=== PATIENT | male | born 1970 | race African-American/Black ===

== ENCOUNTER 2016-05-22 11:13 | Emergency (ER) | payer MEDICAID ==
[2016-05-22 11:23] VITALS: BP 151/88
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
== END 2016-05-22 13:06 | disposition home or self-care (01) ==
LOC: ER 11:13
DX: G89.29 Other chronic pain (principal); M54.5 Low back pain; M51.37 Other intervertebral disc degeneration, lumbosacral region; K08.89 Other specified disorders of teeth and supporting structures; I10 Essential (primary) hypertension; F17.200 Nicotine dependence, unspecified, uncomplicated; Z88.3 Allergy status to other anti-infective agents; Z91.013 Allergy to seafood
CPT/HCPCS: 99283

== ENCOUNTER 2016-07-08 09:22 | Emergency (ER) | payer MEDICAID ==
[2016-07-08] MEDS ORDERED: PENICILLIN V POTASSIUM 500 MG TABLET PO ONE (11:17)
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
[2016-07-08 11:44] VITALS: BP 134/95
== END 2016-07-08 11:35 | disposition home or self-care (01) ==
LOC: ER 09:22
DX: S92.414A Nondisplaced fracture of proximal phalanx of right great toe, initial encounter for closed fracture (principal); W22.03XA Walked into furniture, initial encounter; Y92.009 Unspecified place in unspecified non-institutional (private) residence as the place of occurrence of the external cause; K02.9 Dental caries, unspecified; M79.674 Pain in right toe(s); K08.89 Other specified disorders of teeth and supporting structures; I10 Essential (primary) hypertension; J45.909 Unspecified asthma, uncomplicated; F17.210 Nicotine dependence, cigarettes, uncomplicated; Z71.6 Tobacco abuse counseling; Z91.013 Allergy to seafood; Z88.3 Allergy status to other anti-infective agents
CPT/HCPCS: 99283; 73630; J3490

== ENCOUNTER → 2016-09-16 | Outpatient (CLI) | payer MEDICAID ==
--- NOTE | 2016-09-16 09:00 | RADIOLOGY REPORT (SQ) ---
EXAM DESCRIPTION: FOOT RIGHT COMPLETE COMPLETED DATE/TIME: 09/16/2016 8:24 am REASON FOR STUDY: STRESS FRACTURE, RIGHT TOE(S), INIT ENCNTR FOR FRACTURE M84.377A STRESS FRACTURE, RIGHT TOE(S), INIT ENCNTR FOR FRAC COMPARISON: 07/08/2016 NUMBER OF VIEWS: Three views. TECHNIQUE: AP, lateral and oblique radiographic images acquired of the right foot. LIMITATIONS: None. FINDINGS: MINERALIZATION: Normal. BONES: Mildly comminuted nondisplaced fracture right great toe proximal phalanx without definite exte nsion into the interphalangeal joint or 1st MTP joint. There is a persistent fracture line with mild bony bridging callus. This represents delayed healing. JOINTS: Advanced osteoarthritis at the 1st metatarsophalangeal joint, with a [id number] appearance and bulky bony spurring SOFT TISSUES: No soft tissue swelling. No foreign body. OTHER: No other significant finding. IMPRESSION: Delayed healing of the right great toe proximal phalanx fracture, with fracture line sti ll visible. There is some bony bridging callus along the dorsal and medial aspect of the fracture. TECHNICAL DOCUMENTATION: JOB ID: [id number] [employer]- All Rights Reserved
== END ==
LOC: OD 08:10
PROVIDERS: ATTEND Podiatrist Foot & Ankle Surgery
DX: M84.377A Stress fracture, right toe(s), initial encounter for fracture (principal)

== ENCOUNTER 2017-04-19 14:51 | Observation (INO) | payer MEDICAID ==
[2017-04-19] MEDS ORDERED: KETOROLAC TROMETHAMINE INJ/PF 30 MG/1 ML SDV IV ONE (15:59)
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
[2017-04-19 17:36] LABS: APPEARANCE,URINE SLIGHTLY-CLOUDY; BILIRUBIN,URINE NEGATIVE (NEGATIVE); COLOR,URINE YELLOW; GLUCOSE, URINE NEGATIVE (NEGATIVE); KETONES,URINE NEGATIVE (NEGATIVE); LEUKOCYTE ESTERASE,URINE NEGATIVE (NEGATIVE); NITRITE,URINE NEGATIVE (NEGATIVE); PROTEIN,URINE NEGATIVE (NEGATIVE); URINE SPECIFIC GRAVITY 1.029
[2017-04-19] MEDS ORDERED: KETOROLAC TROMETHAMINE 60 MG/2 ML SDV ONE (18:19)
[2017-04-19] MEDS ORDERED: LORAZEPAM 1 MG TABLET PO ONE (18:54)
[2017-04-19 19:31] LABS: ABSOLUTE BASOPHILS # (AUTO) 0.1 10^3/uL (0.0-0.2); ABSOLUTE LYMPHOCYTES (AUTO) 0.9 10^3/uL (0.5-4.7); ABSOLUTE MONOCYTES (AUTO) 0.5 10^3/uL (0.1-1.4); ABSOLUTE NEUT (AUTO) 8.9 10^3/uL (1.7-8.2); BASOPHILS % (AUTO) 0.5 % (0-2); EOSINOPHILS % (AUTO) 0.3 % (0-6); HEMATOCRIT 48.5 % (37.9-51.0); HEMOGLOBIN 16.6 g/dL (13.5-17.0); LYMPHOCYTES % (AUTO) 8.7 % (13-45); MEAN CORPUSCULAR HEMOGLOBIN 31.7 pg (27.0-33.4); MEAN CORPUSCULAR HGB CONC 34.3 g/dL (32.0-36.0); MEAN CORPUSCULAR VOLUME 92 fl (80-97); MONOCYTES % (AUTO) 5.2 % (3-13); PLATELET COUNT 184 10^3/uL (150-450); RED BLOOD COUNT 5.25 10^6/uL (4.35-5.55); RED CELL DISTRIBUTION WIDTH 14.4 % (11.5-14.0); SEGMENTED NEUTROPHILS % (AUTO) 85.3 % (42-78); TOTAL CELLS COUNTED % (AUTO) 100 %; WHITE BLOOD COUNT 10.4 10^3/uL (4.0-10.5)
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
[2017-04-19] MEDS ORDERED: ONDANSETRON HCL INJ/PF 4 MG/2 ML SDV IV ONE (19:54)
[2017-04-19] MEDS ORDERED: MAG HYDROX/AL HYDROX/SIMETH SUSP 30 ML UDCUP PO PRN (19:54)
[2017-04-19] MEDS ORDERED: FAMOTIDINE 20 MG TABLET PO ONE (19:54)
[2017-04-19 20:06] LABS: ALANINE AMINOTRANSFERASE 208 U/L (21-72); ALBUMIN 3.8 g/dL (3.5-5.0); ALCOHOL < 10 mg/dL (NONE DETECTED); ALKALINE PHOSPHATASE 102 U/L (38-126); ANION GAP 11 (5-19); ASPARTATE AMINO TRANSFERASE 332 U/L (17-59); BILIRUBIN,DIRECT 0.8 mg/dL (0.0-0.4); BILIRUBIN,TOTAL 1.6 mg/dL (0.2-1.3); BLOOD UREA NITROGEN 16 mg/dL (7-20); CALCIUM 8.9 mg/dL (8.4-10.2); CARBON DIOXIDE 23 mmol/L (22-30); CHLORIDE 103 mmol/L (98-107); GLUCOSE 103 mg/dL (75-110); POTASSIUM 4.2 mmol/L (3.6-5.0); SODIUM 137.3 mmol/L (137-145); TOTAL PROTEIN 6.9 g/dL (6.3-8.2)
[2017-04-19] MEDS ORDERED: FENTANYL CITRATE INJ/PF 100 MCG/2 ML AMPUL IV ONE (20:08)
[2017-04-19] MEDS ORDERED: MORPHINE SULFATE 10 MG/ML INJ IV ONE (20:38)
[2017-04-19] MEDS ORDERED: NORMAL SALINE 1000 ML 1,000 ML IV ONE (20:38)
[2017-04-19] MEDS ORDERED: MAGNESIUM HYDROXIDE SUSP 30 ML UDCUP PO PRN (22:56)
[2017-04-19] MEDS ORDERED: ACETAMINOPHEN 325 MG TABLET PO PRN (22:56)
[2017-04-19] MEDS ORDERED: DEXTROSE 40% GEL 15 GM TUBE PO PRN ×2 (22:56)
[2017-04-19] MEDS ORDERED: ONDANSETRON HCL INJ/PF 4 MG/2 ML SDV IV PRN (22:56)
[2017-04-19] MEDS ORDERED: IPRATROPIUM/ALBUTEROL 0.5-2.5 MG/3 ML AMPUL NEB PRN (22:56)
[2017-04-19] MEDS ORDERED: DEXTROSE 50%-WATER 25 GM/50 ML DISP.SYRIN IV PRN ×2 (22:56)
[2017-04-19] MEDS ORDERED: GLUCAGON,HUMAN RECOMB 1 MG INJ SUBCUT PRN (22:56)
--- NOTE | 2017-04-19 23:17 | RADIOLOGY REPORT (SQ) ---
EXAM DESCRIPTION: U/S ABDOMEN LIMITED W/O DOP COMPLETED DATE/TIME: 04/19/2017 10:17 pm REASON FOR STUDY: r/o stones right upper quadrant pain COMPARISON: None. TECHNIQUE: Dynamic and static grayscale images acquired of the abdomen and recorded on PACS. Additio nal selected color Doppler and spectral images recorded. LIMITATIONS: Midline bowel gas FINDINGS: PANCREAS: Not visualized LIVER: No masses. Echotexture normal. LIVER VASCULATURE: Normal directional flow of the main portal vein and hepatic veins. GALLBLADDER: No stones. Normal wall thickness. No pericholecystic fluid. ULTRASOUND-DETECTED LAI'S SIGN: Negative. INTRAHEPATIC DUCTS AND COMMON DUCT: Difficult to visualize at the gaurav hepatis due to bowel gas. INFERIOR VENA CAVA: Not well seen AORTA: Not visualized RIGHT KIDNEY: Normal size. Normal echogenicity. No solid or suspicious masses. No hydronephrosis. No calcifications. PERITONEAL AND RIGHT PLEURAL SPACE: No ascites or effusions. OTHER: No other significant findings. IMPRESSION: No gross gallstones, gallbladder wall thickening or pericholecystic fluid. TECHNICAL DOCUMENTATION: JOB ID: [id number] [employer] ([employer])- All Rights Reserved
[2017-04-20] MEDS: OXYCODONE HCL IR 5 MG TABLET PO SCH ×3 (00:27→12:15)
[2017-04-20] MEDS: NORMAL SALINE 1000 ML 1,000 ML IV SCH ×4 (01:47→22:28)
[2017-04-20] MEDS: HYDROMORPHONE HCL INJ/PF 2 MG/ML AMPULE SUBCUT PRN ×3 (01:49→17:36)
[2017-04-20 02:40] LABS: URINE AMPHETAMINES SCREEN NEGATIVE; URINE BARBITURATES SCREEN NEGATIVE; URINE BENZODIAZEPINES SCREEN NEGATIVE; URINE MARIJUANA (THC) SCREEN NEGATIVE; URINE METHADONE SCREEN NEGATIVE; URINE PHENCYCLIDINE SCREEN NEGATIVE
[2017-04-20 02:44] LABS: URINE COCAINE SCREEN UNCONFIRMED POSITIVE
[2017-04-20] MEDS: HEPARIN SOD (PORCINE) 5,000 UNIT/ML 1 ML SYRINGE SUBCUT SCH ×3 (05:37→22:25)
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
[2017-04-20 06:24] LABS: ABSOLUTE MONOCYTES (AUTO) 0.8 10^3/uL (0.1-1.4); ABSOLUTE NEUT (AUTO) 8.5 10^3/uL (1.7-8.2); BASOPHILS % (AUTO) 0.4 % (0-2); EOSINOPHILS % (AUTO) 0.4 % (0-6); HEMATOCRIT 43.8 % (37.9-51.0); LYMPHOCYTES % (AUTO) 9.9 % (13-45); MEAN CORPUSCULAR HEMOGLOBIN 31.6 pg (27.0-33.4); MEAN CORPUSCULAR HGB CONC 34.1 g/dL (32.0-36.0); MEAN CORPUSCULAR VOLUME 93 fl (80-97); MONOCYTES % (AUTO) 7.6 % (3-13); PLATELET COUNT 152 10^3/uL (150-450); RED BLOOD COUNT 4.74 10^6/uL (4.35-5.55); RED CELL DISTRIBUTION WIDTH 14.2 % (11.5-14.0); SEGMENTED NEUTROPHILS % (AUTO) 81.7 % (42-78); TOTAL CELLS COUNTED % (AUTO) 100 %; WHITE BLOOD COUNT 10.4 10^3/uL (4.0-10.5)
[2017-04-20 06:42] LABS: ANION GAP 8 (5-19); BLOOD UREA NITROGEN 15 mg/dL (7-20); CALCIUM 8.5 mg/dL (8.4-10.2); CARBON DIOXIDE 22 mmol/L (22-30); CHLORIDE 107 mmol/L (98-107); GLUCOSE 94 mg/dL (75-110); POTASSIUM 3.5 mmol/L (3.6-5.0); SODIUM 137.3 mmol/L (137-145)
[2017-04-20] MEDS: NICOTINE 14 MG/24 HR PATCH.TD24 TD SCH (10:01)
[2017-04-20] MEDS: KETOROLAC TROMETHAMINE INJ/PF 30 MG/1 ML SDV IV PRN (10:21)
--- NOTE | 2017-04-20 17:50 | PDOC PROGRESS REPORT ---
Subjective Progress Note for:: 04/20/17 Subjective:: Patient is complaining of epigastric pain quite severe radiating to the back No fever no chills no nausea no vomiting is Blood pressure is quite elevated Reason For Visit: ETOH PANCREATITIS, GASTRITIS Physical Exam Vital Signs: Temp Pulse Resp BP Pulse Ox 106 H 14 151/107 H 97 04/20/17 05:54 04/20/17 16:12 04/20/17 16:12 04/20/17 16:12 Intake & Output 04/19/17 04/20/17 04/21/17 00:59 00:59 00:59 Weight 129.274 kg He does appear in mild/moderate pain Pupils are PERRLA extraocular motor intact Neck supple Heart regular rhythm no murmur no gallop Lungs are clear no rales no rhonchi Abdomen is extremely tender in the epigastrium without guarding or rebound Extremities are intact Neuro nonfocal Results Laboratory Results: 04/20/17 06:10 04/20/17 06:10 04/20/17 04/20/17 06:10 06:10 WBC 10.4 RBC 4.74 Hgb 15.0 Hct 43.8 MCV 93 MCH 31.6 MCHC 34.1 RDW 14.2 H Plt Count 152 Seg Neutrophils % 81.7 H Lymphocytes % 9.9 L Monocytes % 7.6 Eosinophils % 0.4 Basophils % 0.4 Absolute Neutrophils 8.5 H Absolute Lymphocytes 1.0 Absolute Monocytes 0.8 Absolute Eosinophils 0.0 Absolute Basophils 0.0 Sodium 137.3 Potassium 3.5 L Chloride 107 Carbon Dioxide 22 Anion Gap 8 BUN 15 Creatinine 0.79 Est GFR ( Amer) > 60 Est GFR (Non-Af Amer) > 60 Glucose 94 Calcium 8.5 Impressions: Abdomen Ultrasound 04/19/17 20:45 IMPRESSION: No gross gallstones, gallbladder wall thickening or pericholecystic fluid. Assessment & Plan - Diagnosis (1) Alcoholic gastritis Qualifiers: Chronicity: acute Gastritis bleeding: without bleeding Qualified Code(s) : K29.20 - Alcoholic gastritis without bleeding Is this a current diagnosis for this admission?: Yes (2) Alcoholic pancreatitis Qualifiers: Chronicity: acute Is this a current diagnosis for this admission?: Yes Plan: We will schedule the patient for CT abdomen and pelvis in a.m. Clear liquids. (3) Opiate dependence Qualifiers: Substance use status: with unspecified opioid-induced disorder Qualified Code(s): F11.29 - Opioid dependence with unspecified opioid-induced disorder Is this a current diagnosis for this admission?: Yes (4) Pancreatitis Qualifiers: Chronicity: acute Pancreatitis type: alcohol induced Acute pancreatitis complication: unspecified Qualified Code(s): K85.20 - Alcohol induced acute pancreatitis without necrosis or infection Is this a current diagnosis for this admission?: Yes (5) Polysubstance abuse Is this a current diagnosis for this admission?: Yes Plan: Recent cocaine use (6) Accelerated hypertension Is this a current diagnosis for this admission?: Yes Plan: Initiate lisinopril and Norvasc (7) Rhabdomyolysis Qualifiers: Rhabdomyolysis type: non-traumatic Qualified Code(s): M62.82 - Rhabdomyolysis Is this a current diagnosis for this admission?: Yes Plan: Continue IV fluids - Time Time Spent with patient: 25-34 minutes - Plan Summary Plan Summary: Repeat labs in a.m. Clear liquids p.o.
[2017-04-20] MEDS ORDERED: AMLODIPINE BESYLATE 10 MG TABLET PO SCH (18:00)
[2017-04-20] MEDS: HYDRALAZINE HCL INJ/PF 20 MG/1 ML SDV IV SCH (18:12)
[2017-04-20] MEDS: LISINOPRIL 10 MG TABLET PO SCH (18:13)
[2017-04-20] MEDS: HYDROMORPHONE HCL INJ/PF 2 MG/ML AMPULE IV PRN (20:10)
[2017-04-20] MEDS: OXYCODONE HCL IR 5 MG TABLET PO PRN (22:24)
[2017-04-21] MEDS: KETOROLAC TROMETHAMINE INJ/PF 30 MG/1 ML SDV IV PRN ×2 (00:17→06:37)
[2017-04-21] MEDS: HYDRALAZINE HCL INJ/PF 20 MG/1 ML SDV IV SCH ×3 (00:19→13:28)
[2017-04-21] MEDS: HYDROMORPHONE HCL INJ/PF 2 MG/ML AMPULE IV PRN (03:38)
[2017-04-21] MEDS: NORMAL SALINE 1000 ML 1,000 ML IV SCH ×2 (03:38→07:40)
[2017-04-21 05:28] LABS: ABSOLUTE EOSINOPHILS # (AUTO) 0.1 10^3/uL (0.0-0.6); ABSOLUTE LYMPHOCYTES (AUTO) 1.1 10^3/uL (0.5-4.7); ABSOLUTE MONOCYTES (AUTO) 0.8 10^3/uL (0.1-1.4); BASOPHILS % (AUTO) 0.4 % (0-2); EOSINOPHILS % (AUTO) 0.6 % (0-6); HEMATOCRIT 41.2 % (37.9-51.0); HEMOGLOBIN 13.9 g/dL (13.5-17.0); LYMPHOCYTES % (AUTO) 9.2 % (13-45); MEAN CORPUSCULAR HEMOGLOBIN 31.2 pg (27.0-33.4); MEAN CORPUSCULAR HGB CONC 33.6 g/dL (32.0-36.0); MEAN CORPUSCULAR VOLUME 93 fl (80-97); MONOCYTES % (AUTO) 6.8 % (3-13); PLATELET COUNT 135 10^3/uL (150-450); RED BLOOD COUNT 4.44 10^6/uL (4.35-5.55); RED CELL DISTRIBUTION WIDTH 14.4 % (11.5-14.0); TOTAL CELLS COUNTED % (AUTO) 100 %
[2017-04-21 05:49] LABS: ALANINE AMINOTRANSFERASE 112 U/L (21-72); ALKALINE PHOSPHATASE 86 U/L (38-126); ANION GAP 8 (5-19); ASPARTATE AMINO TRANSFERASE 90 U/L (17-59); BILIRUBIN,DIRECT 0.7 mg/dL (0.0-0.4); BILIRUBIN,TOTAL 1.7 mg/dL (0.2-1.3); BLOOD UREA NITROGEN 12 mg/dL (7-20); CALCIUM 8.5 mg/dL (8.4-10.2); CARBON DIOXIDE 21 mmol/L (22-30); CHLORIDE 107 mmol/L (98-107); GLUCOSE 77 mg/dL (75-110); LIPASE 258.4 U/L (23-300); POTASSIUM 3.6 mmol/L (3.6-5.0); SODIUM 136.2 mmol/L (137-145); TOTAL PROTEIN 5.7 g/dL (6.3-8.2)
[2017-04-21] MEDS: HEPARIN SOD (PORCINE) 5,000 UNIT/ML 1 ML SYRINGE SUBCUT SCH (06:37)
[2017-04-21] MEDS: LISINOPRIL 10 MG TABLET PO SCH (06:37)
[2017-04-21] MEDS: OXYCODONE HCL IR 5 MG TABLET PO PRN (07:43)
[2017-04-21] MEDS: NICOTINE 14 MG/24 HR PATCH.TD24 TD SCH (11:34)
--- NOTE | 2017-04-21 11:34 | RADIOLOGY REPORT (SQ) ---
EXAM DESCRIPTION: CT ABD/PELVIS WITH IV ORAL COMPLETED DATE/TIME: 04/21/2017 11:19 am REASON FOR STUDY: acute pancreatitis COMPARISON: Abdominal ultrasound dated 04/19/[address] scan dated December 2012 TECHNIQUE: CT scan of the abdomen and pelvis performed using helical scanning technique with dynamic intravenous contrast injection and oral contrast. Images reviewed with lung, soft tissue, and bone w indows. Reconstructed coronal and sagittal MPR images reviewed. Delayed images for evaluation of the urinary system also acquired. All images stored on PACS. All CT scanners at this facility use dose modulation, iterative reconstruction, and/or weight based d osing when appropriate to reduce radiation dose to as low as reasonably achievable (ALARA). [facility]: Dose Right [facility]: CareDose [facility]: Dose Right [facility]: Teradose 4D [facility]: [employer]LogicLiving CONTRAST TYPE AND DOSE: contrast/concentration: Isovue 370.00 mg/ml; Total Contrast Delivered: 100.0 ml; Total Saline Delivered: 53.6 ml RENAL FUNCTION: None required. The patient is less than 50 years old. RADIATION DOSE: CT Rad equipment meets quality standard of care and radiation dose reduction techniq ues were employed. CTDIvol: 21.0 - 27.9 mGy. DLP: 2896 mGy-cm.. LIMITATIONS: None. FINDINGS: LOWER CHEST: No significant findings. No nodules or infiltrates. LIVER: Normal size. No masses. No dilated ducts. There is fatty infiltration of the liver. SPLEEN: Normal size. No focal lesions. PANCREAS: No masses. No significant calcifications. There are edematous or inflammatory changes in t he peripancreatic fat especially at the level of the pancreatic head consistent with pancreatitis. N o fluid collections are identified. Pancreatic duct not dilated. GALLBLADDER: No identified stones by CT criteria. No inflammatory changes to suggest cholecystitis. ADRENAL GLANDS: No significant masses or asymmetry. RIGHT KIDNEY AND URETER: No solid masses. No significant calcifications. No hydronephrosis or hyd roureter. LEFT KIDNEY AND URETER: No solid masses. No significant calcifications. No hydronephrosis or hydr oureter. AORTA AND VESSELS: No aneurysm. No dissection. Renal arteries, SMA, celiac without stenosis. RETROPERITONEUM: No retroperitoneal adenopathy, hemorrhage or masses. BOWEL AND PERITONEAL CAVITY: No masses or inflammatory changes. No free fluid or peritoneal masses. APPENDIX: Normal. PELVIS: No mass. No free fluid. Normal bladder. ABDOMINAL WALL: No masses. No hernias. BONES: No significant or acute findings. OTHER: No other significant finding. IMPRESSION: Findings consistent with pancreatitis as noted above. No associated pancreatic masses o r fluid collections are identified. Other findings as noted above TECHNICAL DOCUMENTATION: JOB ID: [id number] Quality ID # [id number]: Final reports with documentation of one or more dose reduction techniques (e.g., Au tomated exposure control, adjustment of the mA and/or kV according to patient size, use of iterative reconstruction technique) 2010 [employer]- All Rights Reserved
--- NOTE | 2017-04-21 11:40 | PDOC DISCHARGE SUMMARY ---
General - Admit/Disc Date/PCP Admission Date/Primary Care Provider: 04/19/17 22:50 Discharge Date: 04/21/17 - Discharge Diagnosis (1) Alcoholic gastritis Is this a current diagnosis for this admission?: Yes (2) Alcoholic pancreatitis Is this a current diagnosis for this admission?: Yes (3) Opiate dependence Is this a current diagnosis for this admission?: Yes (4) Pancreatitis Is this a current diagnosis for this admission?: Yes (5) Polysubstance abuse Is this a current diagnosis for this admission?: Yes (6) Accelerated hypertension Is this a current diagnosis for this admission?: Yes (7) Rhabdomyolysis Is this a current diagnosis for this admission?: Yes - Additional Information Discharge Diet: Cardiac Discharge Activity: Activity As Tolerated Prescriptions: Amlodipine Besylate [Norvasc 10 mg Tablet] 10 mg PO QPM #30 tablet Lisinopril 20 mg PO DAILY #30 tablet Oxycodone HCl 5 mg PO Q4H PRN #15 capsule PRN Reason: Pantoprazole Sodium [Protonix] 40 mg PO DAILY #30 tablet. Home Medications: Alprazolam [Xanax] 1 mg PO Q8 04/19/17 Dextroamphetamine/Amphetamine [Adderall 20 mg Tablet] 20 mg PO Q6 04/19/17 Oxycodone HCl 15 mg PO Q6 04/19/17 Amlodipine Besylate [Norvasc 10 mg Tablet] 10 mg PO QPM #30 tablet 04/21/17 Lisinopril 20 mg PO DAILY #30 tablet 04/21/17 Oxycodone HCl 5 mg PO Q4H PRN #15 capsule 04/21/17 Pantoprazole Sodium [Protonix] 40 mg PO DAILY #30 tablet. 04/21/17 History of Present Illness History of Present Illness: MONTY TEE is a 47 year old male with a past medical history of alcohol dependence, schizophrenia, posttraumatic stress disorder, chronic pain, polysubstance abuse with cocaine and methamphetamine. Patient presents with 12 hours of epigastric pain and nausea with vomiting 1 without blood patient admits recent alcohol binging but will not quantify. In the emergency room he is found to have a lipase of 700 and intolerant of p.o. he receives several doses of IV morphine and referred to the hospitalist for admission. Patient denies admits previous episode remotely. He denies history of alcohol withdrawal DTs or seizure. He denies recent change in medication but presents an empty prescription bottle of oxycodone demanding immediate IV morphine. Urine drug screen positive for cocaine. Hospital Course Hospital Course: 1) Alcoholic gastritis Qualifiers: Chronicity: acute Gastritis bleeding: without bleeding Qualified Code(s) : K29.20 - Alcoholic gastritis without bleeding Is this a current diagnosis for this admission?: Yes Patient was discharged on Protonix p.o. (2) Alcoholic pancreatitis Qualifiers: Chronicity: acute Is this a current diagnosis for this admission?: Yes Plan: CT abdomen and pelvis showed acute pancreatitis No evidence of pseudocyst ultrasound of the abdomen showed normal gallbladder and biliary duct (3) Opiate dependence Qualifiers: Substance use status: with unspecified opioid-induced disorder Qualified Code(s): F11.29 - Opioid dependence with unspecified opioid-induced disorder Is this a current diagnosis for this admission?: Yes patient was given 15 oxycodone 5 mg tablets for pain (4) Pancreatitis Qualifiers: Chronicity: acute Pancreatitis type: alcohol induced Acute pancreatitis complication: unspecified Qualified Code(s): K85.20 - Alcohol induced acute pancreatitis without necrosis or infection Is this a current diagnosis for this admission?: Yes (5) Polysubstance abuse Is this a current diagnosis for this admission?: Yes Plan: Recent cocaine use (6) Accelerated hypertension Is this a current diagnosis for this admission?: Yes Plan: Patient was discharged on Norvasc 10 mg daily and lisinopril 20 mg daily His blood pressure is controlled at discharge Physical Exam Vital Signs: Temp Pulse Resp BP Pulse Ox 98.7 F 114 H 16 134/83 H 100 04/21/17 07:28 04/21/17 07:28 04/21/17 07:28 04/21/17 07:28 04/21/17 07:28 Intake & Output 04/20/17 04/21/17 04/22/17 00:59 00:59 00:59 Intake Total 120 Output Total 500 Balance -380 Weight 130 kg 130 kg General appearance: PRESENT: no acute distress, well-developed, well-nourished Head exam: PRESENT: atraumatic, normocephalic Eye exam: PRESENT: conjunctiva pink, EOMI, PERRLA. ABSENT: scleral icterus Ear exam: PRESENT: normal external ear exam Mouth exam: PRESENT: moist, tongue midline Neck exam: ABSENT: carotid bruit, JVD, lymphadenopathy, thyromegaly Respiratory exam: PRESENT: clear to auscultation brandon. ABSENT: rales, rhonchi, wheezes Cardiovascular exam: PRESENT: RRR. ABSENT: diastolic murmur, rubs, systolic murmur Pulses: PRESENT: normal dorsalis pedis pul Vascular exam: PRESENT: normal capillary refill GI/Abdominal exam: PRESENT: normal bowel sounds, soft, tenderness - Epigastric area. ABSENT: guarding, mass, organolmegaly, rebound Rectal exam: PRESENT: deferred Extremities exam: PRESENT: full ROM. ABSENT: calf tenderness, clubbing, pedal edema Neurological exam: PRESENT: alert, awake, oriented to person, oriented to place , oriented to time, oriented to situation, CN II-XII grossly intact. ABSENT: motor sensory deficit Psychiatric exam: PRESENT: appropriate affect, normal mood. ABSENT: homicidal ideation, suicidal ideation Skin exam: PRESENT: dry, intact, warm. ABSENT: cyanosis, rash Results Laboratory Results: 04/21/17 05:07 04/21/17 05:07 04/21/17 04/21/17 05:07 05:07 WBC 12.0 H RBC 4.44 Hgb 13.9 Hct 41.2 MCV 93 MCH 31.2 MCHC 33.6 RDW 14.4 H Plt Count 135 L Seg Neutrophils % 83.0 H Lymphocytes % 9.2 L Monocytes % 6.8 Eosinophils % 0.6 Basophils % 0.4 Absolute Neutrophils 10.0 H Absolute Lymphocytes 1.1 Absolute Monocytes 0.8 Absolute Eosinophils 0.1 Absolute Basophils 0.0 Sodium 136.2 L Potassium 3.6 Chloride 107 Carbon Dioxide 21 L Anion Gap 8 BUN 12 Creatinine 0.70 Est GFR ( Amer) > 60 Est GFR (Non-Af Amer) > 60 Glucose 77 Calcium 8.5 Total Bilirubin 1.7 H AST 90 H ALT 112 H Alkaline Phosphatase 86 Total Protein 5.7 L Albumin 3.0 L Lipase 258.4 Impressions: Abdomen Ultrasound 04/19/17 20:45 IMPRESSION: No gross gallstones, gallbladder wall thickening or pericholecystic fluid. Abdomen/Pelvis CT 04/21/17 06:00 IMPRESSION: Findings consistent with pancreatitis as noted above. No associated pancreatic masses or fluid collections are identified. Other findings as noted above Plan Discharge Plan: Patient was discharged home [facility] in a week Time Spent: Greater than 30 Minutes
[2017-04-21 12:01] VITALS: BP 136/85
[2017-04-21] MEDS ORDERED: OXYCODONE HCL IR 5 MG TABLET ONE (13:22)
[2017-04-21] MEDS ORDERED: OXYCODONE HCL IR 5 MG TABLET PO ONE (14:00)
--- NOTE | 2017-04-22 15:02 | Physician Advisory Note ---
Physician Advisor ProgressNote .: Pursuant to the plan for [facility], I have reviewed the medical record for this patient. Physician Advisor Statement: "Accelerated HTN" is documented, but no resultant sx/end-organ effects, so I would not query for "HTN-renuka emergency" in this case. CK
== END 2017-04-21 14:05 | disposition home or self-care (01) ==
LOC: ER 14:51 → INTOOBSV 22:50 → EH 22:50 → 4W 04-20 18:45
PROVIDERS: ADMIT Internal Medicine; ATTEND Internal Medicine
DX: K29.20 Alcoholic gastritis without bleeding (principal); K85.20 Alcohol induced acute pancreatitis without necrosis or infection; F11.29 Opioid dependence with unspecified opioid-induced disorder; F15.10 Other stimulant abuse, uncomplicated; F14.10 Cocaine abuse, uncomplicated; I10 Essential (primary) hypertension; M62.82 Rhabdomyolysis; G89.29 Other chronic pain; F17.200 Nicotine dependence, unspecified, uncomplicated; Z79.899 Other long term (current) drug therapy
CPT/HCPCS: 99285; 96372; 96361; 96374; 96375; 36415 ×3; 80307 ×2; 83690 ×2; 85025 ×3; 80048; 80053 ×2; 81001; 76705; 74177; G0378 ×3; J1644 ×2; J3490 ×7; J1885 ×3; J3010; J0360 ×2; J2270; J1170 ×2; J2405 ×2; J7030 ×3

== ENCOUNTER 2017-08-12 17:27 | Emergency (ER) | payer MEDICAID ==
[2017-08-12] MEDS ORDERED: ASPIRIN 81 MG TABLET, CHEWABLE PO ONE (18:08)
--- NOTE | 2017-08-12 18:21 | EKG REPORT ---
SEVERITY:- BORDERLINE ECG - SINUS TACHYCARDIA BORDERLINE PROLONGED QT INTERVAL : Confirmed by: Jorge Chapman MD 12-Aug-2017 18:20:48
--- NOTE | 2017-08-12 18:33 | RADIOLOGY REPORT (SQ) ---
EXAM DESCRIPTION: CHEST SINGLE VIEW COMPLETED DATE/TIME: 08/12/2017 6:23 pm REASON FOR STUDY: cp COMPARISON: 08/04/2014 EXAM PARAMETERS: NUMBER OF VIEWS: One view. TECHNIQUE: Single frontal radiographic view of the chest acquired. RADIATION DOSE: NA LIMITATIONS: None. FINDINGS: LUNGS AND PLEURA: No opacities, masses or pneumothorax. No pleural effusion. MEDIASTINUM AND HILAR STRUCTURES: No masses. Contour normal. HEART AND VASCULAR STRUCTURES: Heart normal in size. Normal vasculature. BONES: No acute findings. HARDWARE: None in the chest. OTHER: No other significant finding. IMPRESSION: NO ACUTE RADIOGRAPHIC FINDING IN THE CHEST. TECHNICAL DOCUMENTATION: JOB ID: [id number] [employer]- All Rights Reserved Reading location - IP/workstation name: [email or web address]
[2017-08-12 19:04] LABS: ABSOLUTE LYMPHOCYTES (AUTO) 1.2 10^3/uL (0.5-4.7); ABSOLUTE MONOCYTES (AUTO) 0.3 10^3/uL (0.1-1.4); ABSOLUTE NEUT (AUTO) 2.8 10^3/uL (1.7-8.2); BASOPHILS % (AUTO) 0.9 % (0-2); HEMATOCRIT 38.7 % (37.9-51.0); HEMOGLOBIN 13.5 g/dL (13.5-17.0); LYMPHOCYTES % (AUTO) 27.7 % (13-45); MEAN CORPUSCULAR HEMOGLOBIN 31.9 pg (27.0-33.4); MEAN CORPUSCULAR HGB CONC 34.9 g/dL (32.0-36.0); MEAN CORPUSCULAR VOLUME 91 fl (80-97); MONOCYTES % (AUTO) 7.9 % (3-13); PLATELET COUNT 253 10^3/uL (150-450); RED BLOOD COUNT 4.23 10^6/uL (4.35-5.55); SEGMENTED NEUTROPHILS % (AUTO) 62.5 % (42-78); TOTAL CELLS COUNTED % (AUTO) 100 %; WHITE BLOOD COUNT 4.4 10^3/uL (4.0-10.5)
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
[2017-08-12] MEDS ORDERED: ONDANSETRON HCL INJ/PF 4 MG/2 ML SDV IV ONE (19:07)
[2017-08-12] MEDS ORDERED: NORMAL SALINE 1000 ML 1,000 ML IV ONE ×2 (19:07→20:05)
[2017-08-12] MEDS ORDERED: MORPHINE SULFATE 10 MG/ML INJ IV ONE (19:07)
[2017-08-12] MEDS ORDERED: PANTOPRAZOLE SODIUM 40 MG VIAL IV ONE (19:14)
[2017-08-12 19:24] LABS: ALANINE AMINOTRANSFERASE 196 U/L (21-72); ALBUMIN 3.2 g/dL (3.5-5.0); ALKALINE PHOSPHATASE 173 U/L (38-126); ANION GAP 12 (5-19); ASPARTATE AMINO TRANSFERASE 277 U/L (17-59); BILIRUBIN,DIRECT 0.8 mg/dL (0.0-0.4); BILIRUBIN,TOTAL 1.5 mg/dL (0.2-1.3); BLOOD UREA NITROGEN 10 mg/dL (7-20); CALCIUM 9.3 mg/dL (8.4-10.2); CARBON DIOXIDE 22 mmol/L (22-30); CHLORIDE 105 mmol/L (98-107); CREATINE KINASE 109 U/L (55-170); GLUCOSE 102 mg/dL (75-110); SODIUM 139.1 mmol/L (137-145); TOTAL PROTEIN 6.5 g/dL (6.3-8.2)
[2017-08-12 19:34] LABS: CREATINE KINASE MB 1.37 ng/mL (<4.55)
[2017-08-12 19:40] LABS: TROPONIN I 0.04 ng/mL
[2017-08-12] MEDS ORDERED: HYDROMORPHONE HCL INJ/PF 2 MG/ML AMPULE IV ONE (21:11)
--- NOTE | 2017-08-12 21:21 | RADIOLOGY REPORT (SQ) ---
EXAM DESCRIPTION: U/S ABDOMEN LIMITED W/O DOP COMPLETED DATE/TIME: 08/12/2017 9:09 pm REASON FOR STUDY: upper abd pain, eval for gallstones COMPARISON: 04/19/2017 TECHNIQUE: Dynamic and static grayscale images acquired of the right upper quadrant and recorded on PACS. Additional selected color Doppler and spectral images recorded. LIMITATIONS: Study limited due to acoustical interference from fat or from air in the bowel. FINDINGS: PANCREAS: Parts or all of the pancreas poorly seen secondary to acoustical interference fr om fat or from air in the bowel. LIVER: Echotexture is coarse with increased echogenicity consistent with fatty infiltration. No mass es. LIVER VASCULATURE: Normal directional flow of the main portal vein and hepatic veins. GALLBLADDER: No stones. Normal wall thickness. No pericholecystic fluid. ULTRASOUND-DETECTED LAI'S SIGN: Reported positive. INTRAHEPATIC DUCTS AND COMMON DUCT: CBD and intrahepatic ducts normal caliber. No filling defects. INFERIOR VENA CAVA: Normal flow. AORTA: No aneurysm. RIGHT KIDNEY: Normal size. Normal echogenicity. No solid or suspicious masses. No hydronephrosis. No calcifications. PERITONEAL CAVITY AND RIGHT PLEURAL SPACE: No ascites or effusions. OTHER: No other significant finding. IMPRESSION: LIMITED RIGHT UPPER QUADRANT ULTRASOUND WITH SEVERE HEPATIC STEATOSIS. REPORTED POSITIV E SONOGRAPHIC LAI SIGN HOWEVER THERE ARE NO ADDITIONAL SONOGRAPHIC FINDINGS TO SUGGEST CHOLECYSTIT IS. TECHNICAL DOCUMENTATION: JOB ID: [id number]- All Rights Reserved Reading location - IP/workstation name: [email or web address]
[2017-08-12 21:24] LABS: APPEARANCE,URINE SLIGHTLY-CLOUDY; BILIRUBIN,URINE SMALL (NEGATIVE); COLOR,URINE AMBER; GLUCOSE, URINE NEGATIVE (NEGATIVE); KETONES,URINE TRACE mg/dL (NEGATIVE); LEUKOCYTE ESTERASE,URINE NEGATIVE (NEGATIVE); NITRITE,URINE NEGATIVE (NEGATIVE); PROTEIN,URINE 30 mg/dL (NEGATIVE); URINE SPECIFIC GRAVITY 1.023
[2017-08-12 21:45] LABS: URINE AMPHETAMINES SCREEN NEGATIVE; URINE BARBITURATES SCREEN NEGATIVE; URINE BENZODIAZEPINES SCREEN NEGATIVE; URINE COCAINE SCREEN NEGATIVE; URINE MARIJUANA (THC) SCREEN NEGATIVE; URINE METHADONE SCREEN NEGATIVE; URINE PHENCYCLIDINE SCREEN NEGATIVE
--- NOTE | 2017-08-12 22:10 | RADIOLOGY REPORT (SQ) ---
EXAM DESCRIPTION: CT ABD/PELVIS WITH IV ONLY COMPLETED DATE/TIME: 08/12/2017 9:58 pm REASON FOR STUDY: upper abd pain, N/V, tachycardia COMPARISON: 04/21/2017 07/28/2014 TECHNIQUE: CT scan of the abdomen and pelvis performed using helical scanning technique with dynamic intravenous contrast injection. No oral contrast. Images reviewed with lung, soft tissue, and bone windows. Reconstructed coronal and sagittal MPR images reviewed. Delayed images for evaluation of the urinary system also acquired. All images stored on PACS. All CT scanners at this facility use dose modulation, iterative reconstruction, and/or weight based d osing when appropriate to reduce radiation dose to as low as reasonably achievable (ALARA). [facility]: Dose Right [facility]: CareDose [facility]: Dose Right [facility]: Teradose 4D [facility]: Civo CONTRAST TYPE AND DOSE: contrast/concentration: Isovue 370.00 mg/ml; Total Contrast Delivered: 77.0 ml; Total Saline Delivered: 67.1 ml RENAL FUNCTION: GFR > 60. RADIATION DOSE: CT Rad equipment meets quality standard of care and radiation dose reduction techniq ues were employed. CTDIvol: NaN - NaN mGy. DLP: 0 mGy-cm.. LIMITATIONS: None. FINDINGS: LOWER CHEST: No significant findings. No nodules or infiltrates. LIVER: STABLE DEGREE OF hepatic steatosis. No masses. No dilated ducts. SPLEEN: Normal size. No focal lesions. PANCREAS: No masses. No significant calcifications. No adjacent inflammation or peripancreatic fluid collections. Pancreatic duct not dilated. GALLBLADDER: No identified stones by CT criteria. No inflammatory changes to suggest cholecystitis. ADRENAL GLANDS: No significant masses or asymmetry. RIGHT KIDNEY AND URETER: Stable cyst upper pole. No solid masses. No significant calcifications. No hydronephrosis or hydroureter. LEFT KIDNEY AND URETER: Stable cysts. No solid masses. No significant calcifications. No hydrone phrosis or hydroureter. AORTA AND VESSELS: No aneurysm. No dissection. Renal arteries, SMA, celiac without stenosis. RETROPERITONEUM: No retroperitoneal adenopathy, hemorrhage or masses. BOWEL AND PERITONEAL CAVITY: No masses or inflammatory changes. No free fluid or peritoneal masses. APPENDIX: Normal. PELVIS: No mass. No free fluid. Normal bladder. ABDOMINAL WALL: No masses. No significant hernias. BONES: Stable degenerative change without fracture or suspicious osseous lesion. OTHER: No other significant finding. IMPRESSION: NO ACUTE FINDINGS WITHIN THE ABDOMEN OR PELVIS. INTERVAL RESOLUTION OF PERIPANCREATIC I NFLAMMATORY CHANGE. NO ADDITIONAL SIGNIFICANT CHANGE FROM PRIOR STUDY. TECHNICAL DOCUMENTATION: JOB ID: [id number] Quality ID # [id number]: Final reports with documentation of one or more dose reduction techniques (e.g., Au tomated exposure control, adjustment of the mA and/or kV according to patient size, use of iterative reconstruction technique) 2010 [employer]- All Rights Reserved Reading location - IP/workstation name: [email or web address]
[2017-08-12] MEDS ORDERED: SUCRALFATE 1 GM TABLET PO ONE (23:07)
[2017-08-13] MEDS ORDERED: HYDROCODONE/ACETAMINOPHEN 5-325 MG (6 TAB/ER DISP) PO PRN (00:17)
[2017-08-13 00:45] VITALS: BP 122/79
== END 2017-08-13 00:48 | disposition home or self-care (01) ==
LOC: ER 17:27
DX: K29.20 Alcoholic gastritis without bleeding (principal); M54.40 Lumbago with sciatica, unspecified side; G89.29 Other chronic pain; R07.9 Chest pain, unspecified; E66.9 Obesity, unspecified; I10 Essential (primary) hypertension; R61 Generalized hyperhidrosis; E78.00 Pure hypercholesterolemia, unspecified; Z91.013 Allergy to seafood
CPT/HCPCS: 93005; 99285; 96361; 96374; 96375; 36415; 82553; 80307 ×2; 82550; 83690; 85025; 80053; 81001; 84484; 71045; 76705; 74177; 93010; J2270; J1170; S0164; J3490; J2405; J7030

== ENCOUNTER 2018-03-04 10:05 | Emergency (ER) | payer MEDICAID ==
[2018-03-04] MEDS ORDERED: MORPHINE SULFATE 10 MG/ML INJ IV ONE (10:33)
[2018-03-04] MEDS ORDERED: ONDANSETRON HCL INJ/PF 4 MG/2 ML SDV IV ONE (10:33)
[2018-03-04] MEDS ORDERED: NORMAL SALINE 1000 ML 1,000 ML IV ONE (10:33)
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
[2018-03-04 13:10] LABS: ALANINE AMINOTRANSFERASE 40 U/L (21-72); ALBUMIN 3.6 g/dL (3.5-5.0); ALKALINE PHOSPHATASE 62 U/L (38-126); ANION GAP 10 (5-19); ASPARTATE AMINO TRANSFERASE 31 U/L (17-59); BILIRUBIN,DIRECT 0.2 mg/dL (0.0-0.4); BILIRUBIN,TOTAL 1.2 mg/dL (0.2-1.3); BLOOD UREA NITROGEN 15 mg/dL (7-20); CALCIUM 9.3 mg/dL (8.4-10.2); CARBON DIOXIDE 27 mmol/L (22-30); CHLORIDE 103 mmol/L (98-107); CHOLESTEROL 140.98 mg/dL (0-200); GLUCOSE 97 mg/dL (75-110); LIPASE 292.6 U/L (23-300); POTASSIUM 3.5 mmol/L (3.6-5.0); SODIUM 139.6 mmol/L (137-145); TOTAL PROTEIN 6.4 g/dL (6.3-8.2); TRIGLYCERIDES 252 mg/dL (<150)
[2018-03-04 13:21] LABS: DIRECT LDL 75 mg/dL (<100)
[2018-03-04 13:22] LABS: ALCOHOL < 10 mg/dL (NONE DETECTED); VLDL CHOLESTEROL 50.4 mg/dL (10-31)
[2018-03-04 13:29] LABS: APPEARANCE,URINE CLEAR; BILIRUBIN,URINE NEGATIVE (NEGATIVE); COLOR,URINE YELLOW; GLUCOSE, URINE NEGATIVE (NEGATIVE); KETONES,URINE NEGATIVE (NEGATIVE); LEUKOCYTE ESTERASE,URINE NEGATIVE (NEGATIVE); NITRITE,URINE NEGATIVE (NEGATIVE); PROTEIN,URINE NEGATIVE (NEGATIVE); URINE SPECIFIC GRAVITY 1.019; UROBILINOGEN,URINE NEGATIVE mg/dL (<2.0)
[2018-03-04 13:36] LABS: ABSOLUTE BASOPHILS # (AUTO) 0.1 10^3/uL (0.0-0.2); ABSOLUTE EOSINOPHILS # (AUTO) 0.1 10^3/uL (0.0-0.6); ABSOLUTE LYMPHOCYTES (AUTO) 1.2 10^3/uL (0.5-4.7); ABSOLUTE MONOCYTES (AUTO) 0.4 10^3/uL (0.1-1.4); ABSOLUTE NEUT (AUTO) 6.2 10^3/uL (1.7-8.2); BASOPHILS % (AUTO) 0.7 % (0-2); HEMATOCRIT 44.6 % (37.9-51.0); HEMOGLOBIN 15.3 g/dL (13.5-17.0); LYMPHOCYTES % (AUTO) 14.8 % (13-45); MEAN CORPUSCULAR HEMOGLOBIN 32.8 pg (27.0-33.4); MEAN CORPUSCULAR HGB CONC 34.3 g/dL (32.0-36.0); MEAN CORPUSCULAR VOLUME 96 fl (80-97); MONOCYTES % (AUTO) 5.5 % (3-13); PLATELET COUNT 169 10^3/uL (150-450); RED BLOOD COUNT 4.66 10^6/uL (4.35-5.55); RED CELL DISTRIBUTION WIDTH 15.3 % (11.5-14.0); TOTAL CELLS COUNTED % (AUTO) 100 %
[2018-03-04 13:39] LABS: URINE AMPHETAMINES SCREEN NEGATIVE; URINE BARBITURATES SCREEN NEGATIVE; URINE BENZODIAZEPINES SCREEN NEGATIVE; URINE COCAINE SCREEN UNCONFIRMED POSITIVE; URINE MARIJUANA (THC) SCREEN NEGATIVE; URINE METHADONE SCREEN NEGATIVE; URINE PHENCYCLIDINE SCREEN NEGATIVE
[2018-03-04] MEDS ORDERED: LIDOCAINE 2% VISCOUS SOLN 20 ML UDCUP PO ONE (13:52)
[2018-03-04] MEDS ORDERED: METOCLOPRAMIDE HCL ORAL SOLN 10 MG/10 ML UDCUP PO ONE (13:52)
[2018-03-04] MEDS ORDERED: MAG HYDROX/AL HYDROX/SIMETH SUSP 30 ML UDCUP PO ONE (13:52)
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
--- NOTE | 2018-03-04 15:04 | RADIOLOGY REPORT (SQ) ---
EXAM DESCRIPTION: ACUTE ABDOMEN SERIES COMPLETED DATE/TIME: 03/04/2018 2:52 pm REASON FOR STUDY: abd pain COMPARISON: None. NUMBER OF VIEWS: Three views. TECHNIQUE: Frontal chest, supine abdomen and upright/decubitus abdomen radiographic images acquired. LIMITATIONS: None. FINDINGS: CHEST: Lungs clear of infiltrates. FREE AIR: None. No abnormal gas collections. BOWEL GAS PATTERN: Nonobstructive pattern. No dilated loops or air fluid levels. CALCIFICATIONS: No suspicious calcifications. HARDWARE: None in the abdomen. SOFT TISSUES: No gross mass or suggestion of organomegaly. BONES: No acute fracture. No worrisome bone lesions. OTHER: No other significant finding. IMPRESSION: NO RADIOGRAPHIC EVIDENCE FOR ACUTE ABDOMINAL DISEASE. TECHNICAL DOCUMENTATION: JOB ID: [id number] [employer]- All Rights Reserved Reading location - IP/workstation name: [email or web address]
[2018-03-04] MEDS ORDERED: DICYCLOMINE HCL INJ 20 MG/2 ML AMPULE IM ONE (15:27)
[2018-03-04 15:45] VITALS: BP 123/81
== END 2018-03-04 16:24 | disposition home or self-care (01) ==
LOC: ER 10:05
DX: F14.90 Cocaine use, unspecified, uncomplicated (principal); K29.00 Acute gastritis without bleeding; R10.13 Epigastric pain; R11.0 Nausea; F17.200 Nicotine dependence, unspecified, uncomplicated; E78.00 Pure hypercholesterolemia, unspecified; I10 Essential (primary) hypertension; Z91.013 Allergy to seafood
CPT/HCPCS: 99284; 96372; 96361; 96374; 96375; 36415; 80307 ×2; 83690; 85025; 80053; 81001; 80061; 74022; 90686; G0008; J0500; J3490 ×3; J2270; J2405; J7030; 90471

== ENCOUNTER 2018-07-03 16:24 | Inpatient (IN) | payer MEDICAID, OTHER ==
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
[2018-07-03] MEDS ORDERED: ONDANSETRON HCL INJ/PF 4 MG/2 ML SDV IV ONE (17:33)
--- NOTE | 2018-07-03 17:34 | RADIOLOGY REPORT (SQ) ---
EXAM DESCRIPTION: CHEST 2 VIEWS COMPLETED DATE/TIME: 07/03/2018 5:20 pm REASON FOR STUDY: chest pressure COMPARISON: 08/04/2014 EXAM PARAMETERS: NUMBER OF VIEWS: two views TECHNIQUE: Digital Frontal and Lateral radiographic views of the chest acquired. RADIATION DOSE: NA LIMITATIONS: none FINDINGS: LUNGS AND PLEURA: No opacities, masses or pneumothorax. No pleural effusion. MEDIASTINUM AND HILAR STRUCTURES: No masses or contour abnormalities. HEART AND VASCULAR STRUCTURES: Heart normal size. No evidence for failure. BONES: No acute findings. HARDWARE: None in the chest. OTHER: No other significant finding. IMPRESSION: NO ACUTE RADIOGRAPHIC FINDING IN THE CHEST. TECHNICAL DOCUMENTATION: JOB ID: [id number] [employer]- All Rights Reserved Reading location - IP/workstation name: [email or web address]
[2018-07-03] MEDS ORDERED: HYDROCODONE/ACETAMINOPHEN 5-325 MG TABLET PO ONE (18:04)
[2018-07-03 18:07] LABS: ABSOLUTE LYMPHOCYTES (AUTO) 1.3 10^3/uL (0.5-4.7); ABSOLUTE MONOCYTES (AUTO) 0.3 10^3/uL (0.1-1.4); ABSOLUTE NEUT (AUTO) 3.6 10^3/uL (1.7-8.2); BASOPHILS % (AUTO) 0.7 % (0-2); EOSINOPHILS % (AUTO) 0.2 % (0-6); HEMATOCRIT 48.1 % (37.9-51.0); LYMPHOCYTES % (AUTO) 25.3 % (13-45); MEAN CORPUSCULAR HEMOGLOBIN 32.9 pg (27.0-33.4); MEAN CORPUSCULAR HGB CONC 35.4 g/dL (32.0-36.0); MEAN CORPUSCULAR VOLUME 93 fl (80-97); MONOCYTES % (AUTO) 5.4 % (3-13); PLATELET COUNT 214 10^3/uL (150-450); RED BLOOD COUNT 5.17 10^6/uL (4.35-5.55); RED CELL DISTRIBUTION WIDTH 15.2 % (11.5-14.0); SEGMENTED NEUTROPHILS % (AUTO) 68.4 % (42-78); TOTAL CELLS COUNTED % (AUTO) 100 %; WHITE BLOOD COUNT 5.2 10^3/uL (4.0-10.5)
[2018-07-03 18:34] LABS: CREATINE KINASE MB 3.65 ng/mL (<4.55); TROPONIN I 0.026 ng/mL
[2018-07-03 21:23] LABS: ALANINE AMINOTRANSFERASE 255 U/L (21-72); ALBUMIN 3.8 g/dL (3.5-5.0); ALCOHOL 23 mg/dL (NONE DETECTED); ALKALINE PHOSPHATASE 156 U/L (38-126); ANION GAP 13 (5-19); ASPARTATE AMINO TRANSFERASE 382 U/L (17-59); BILIRUBIN,TOTAL 1.7 mg/dL (0.2-1.3); BLOOD UREA NITROGEN 14 mg/dL (7-20); CALCIUM 9.3 mg/dL (8.4-10.2); CARBON DIOXIDE 19 mmol/L (22-30); CHLORIDE 106 mmol/L (98-107); CREATINE KINASE 238 U/L (55-170); GLUCOSE 136 mg/dL (75-110); LIPASE 560.4 U/L (23-300); POTASSIUM 3.4 mmol/L (3.6-5.0); SODIUM 138.1 mmol/L (137-145)
[2018-07-03] MEDS ORDERED: MORPHINE SULFATE 10 MG/ML INJ IV PRN (22:15)
[2018-07-03] MEDS ORDERED: NORMAL SALINE 1000 ML 1,000 ML IV ONE (22:16)
[2018-07-03] MEDS ORDERED: FAMOTIDINE 20 MG TABLET PO ONE (22:17)
[2018-07-03] MEDS ORDERED: LIDOCAINE 2% VISCOUS SOLN 20 ML UDCUP PO ONE (22:17)
[2018-07-03] MEDS ORDERED: MAG HYDROX/AL HYDROX/SIMETH SUSP 30 ML UDCUP PO ONE (22:17)
[2018-07-03] MEDS ORDERED: METOCLOPRAMIDE HCL ORAL SOLN 10 MG/10 ML UDCUP PO ONE (22:17)
[2018-07-03] MEDS ORDERED: DIAZEPAM INJ 10 MG/2 ML DISP.SYRIN IV ONE (22:25)
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
[2018-07-03] MEDS: MORPHINE SULFATE 10 MG/ML INJ IV PRN (22:27)
[2018-07-03 22:43] LABS: APPEARANCE,URINE SLIGHTLY-CLOUDY; BILIRUBIN,URINE SMALL (NEGATIVE); COLOR,URINE AMBER; GLUCOSE, URINE NEGATIVE (NEGATIVE); KETONES,URINE TRACE mg/dL (NEGATIVE); LEUKOCYTE ESTERASE,URINE NEGATIVE (NEGATIVE); NITRITE,URINE NEGATIVE (NEGATIVE); PROTEIN,URINE 100 mg/dL (NEGATIVE); URINE SPECIFIC GRAVITY 1.032
[2018-07-03 22:56] LABS: URINE AMPHETAMINES SCREEN NEGATIVE; URINE BARBITURATES SCREEN NEGATIVE; URINE BENZODIAZEPINES SCREEN NEGATIVE; URINE COCAINE SCREEN UNCONFIRMED POSITIVE; URINE MARIJUANA (THC) SCREEN NEGATIVE; URINE METHADONE SCREEN NEGATIVE; URINE PHENCYCLIDINE SCREEN NEGATIVE
[2018-07-04] MEDS: MORPHINE SULFATE 10 MG/ML INJ IV PRN ×2 (00:27→21:10)
[2018-07-04] MEDS ORDERED: NORMAL SALINE 1000 ML 1,000 ML IV ONE (00:53)
--- NOTE | 2018-07-04 01:31 | RADIOLOGY REPORT (SQ) ---
EXAM DESCRIPTION: CT ABDOMEN PELVIS WITH IV CONTRAST COMPLETED DATE/TME: 07/03/2018 22:23 CLINICAL HISTORY: 48 years, Male, diffuse ab pain, vomiting, lft abnormalities, CREAT 0.80 COMPARISON: 08/12/2017 CT TECHNIQUE: 811 Images stored on PACS. All CT scanners at this facility use dose modulation, iterative reconstruction, and/or weight based dosing when appropriate to reduce radiation dose to as low as reasonably achievable (ALARA). [facility]: Dose Right [facility]: CareDose [facility]: Dose Right [facility]: Teradose 4D [facility]: [employer] LIMITATIONS: None. FINDINGS: Limited evaluation of the lung bases is unremarkable. Degenerative changes of the lumbar spine. Osseous structures are otherwise grossly intact. Diffuse fatty infiltrative change to the liver. No focal liver lesions. The spleen, right adrenal gland are unremarkable. There is a stable 1.5 x 1.0 cm left adrenal nodule, likely adenoma given its stability. Heterogeneity of the pancreas with minor surrounding inflammation consistent with acute pancreatitis. There is also adjacent wall thickening and mild dilatation of the duodenum, likely reactive duodenitis. Simple appearing left and right renal cysts. Normal appendix. No gross evidence for bowel obstruction. No free air or free fluid. IMPRESSION: Fatty infiltrative change to the liver. Pancreatitis with what is likely mild adjacent/reactive duodenitis. Small bilateral renal cysts. Stable left adrenal nodule. TECHNICAL DOCUMENTATION: Quality ID # 436: Final reports with documentation of one or more dose reduction techniques (e.g., Automated exposure control, adjustment of the mA and/or kV according to patient size, use of iterative reconstruction technique) copyright 2011 [email or web address]- All Rights Reserved
[2018-07-04] MEDS ORDERED: SUCRALFATE 1 GM TABLET PO ONE (01:43)
[2018-07-04 03:40] LABS: INTERNATIONAL RATION (INR) 1.02; PARTIAL THROMBOPLASTIN TIME 29.2 SEC (23.5-35.8); PROTHROMBIN TIME 13.9 SEC (11.4-15.4)
[2018-07-04 03:56] LABS: PHOSPHORUS 3.5 mg/dL (2.5-4.5)
[2018-07-04 04:12] LABS: FREE T4 (FREE THYROXINE) 1.12 ng/dL (0.78-2.19)
[2018-07-04 04:26] LABS: THYROID STIMULATING HORMONE 1.76 uIU/mL (0.47-4.68)
[2018-07-04] MEDS: TRAMADOL HCL 50 MG TABLET PO PRN ×2 (06:28→15:39)
[2018-07-04] MEDS: POTASSI CL 20 MEQ/NS 1L 1,000 ML IV PRN ×2 (06:29→16:53)
[2018-07-04] MEDS: THIAMINE HCL 100 MG TABLET PO SCH (09:56)
[2018-07-04] MEDS: PANTOPRAZOLE SODIUM 40 MG TABLET.DR PO SCH (09:56)
[2018-07-04] MEDS: PREDNISOLONE SOD PHOS 15 MG/5 ML ORAL SYRING PO SCH (09:57)
[2018-07-04] MEDS: MAGNESIUM CITRATE 296 ML BOTTLE PO SCH (09:59)
--- NOTE | 2018-07-04 16:44 | EKG REPORT ---
SEVERITY:- BORDERLINE ECG - SINUS TACHYCARDIA BORDERLINE PROLONGED QT INTERVAL : Confirmed by: Johnson King 04-Jul-2018 16:43:07
[2018-07-04] MEDS ORDERED: LABETALOL HCL INJ 20 MG/4 ML DISP.SYRIN IV PRN (20:17)
[2018-07-04] MEDS: CLONIDINE HCL 0.1 MG TABLET PO SCH (21:09)
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
[2018-07-05] MEDS: POTASSI CL 20 MEQ/NS 1L 1,000 ML IV PRN ×2 (03:41→15:24)
[2018-07-05] MEDS: TRAMADOL HCL 50 MG TABLET PO PRN ×2 (03:50→15:23)
[2018-07-05] MEDS: CLONIDINE HCL 0.1 MG TABLET PO SCH (05:04)
[2018-07-05 07:02] LABS: ALANINE AMINOTRANSFERASE 148 U/L (21-72); ALBUMIN 2.5 g/dL (3.5-5.0); ALKALINE PHOSPHATASE 154 U/L (38-126); AMYLASE 33 U/L (30-110); ANION GAP 6 (5-19); ASPARTATE AMINO TRANSFERASE 138 U/L (17-59); BILIRUBIN,DIRECT 0.6 mg/dL (0.0-0.4); BILIRUBIN,TOTAL 1.2 mg/dL (0.2-1.3); BLOOD UREA NITROGEN 5 mg/dL (7-20); CALCIUM 8.1 mg/dL (8.4-10.2); CARBON DIOXIDE 23 mmol/L (22-30); CHLORIDE 108 mmol/L (98-107); CHOLESTEROL 122.88 mg/dL (0-200); GLUCOSE 110 mg/dL (75-110); LIPASE 126.5 U/L (23-300); POTASSIUM 3.8 mmol/L (3.6-5.0); SODIUM 136.6 mmol/L (137-145); TOTAL PROTEIN 5.4 g/dL (6.3-8.2); TRIGLYCERIDES 115 mg/dL (<150)
[2018-07-05 07:13] LABS: DIRECT LDL 64 mg/dL (<100)
[2018-07-05] MEDS: PANTOPRAZOLE SODIUM 40 MG TABLET.DR PO SCH (09:13)
[2018-07-05] MEDS: MAGNESIUM CITRATE 296 ML BOTTLE PO SCH (09:13)
[2018-07-05] MEDS: THIAMINE HCL 100 MG TABLET PO SCH (09:13)
[2018-07-05 09:34] LABS: ABSOLUTE LYMPHOCYTES (AUTO) 1.1 10^3/uL (0.5-4.7); ABSOLUTE MONOCYTES (AUTO) 0.3 10^3/uL (0.1-1.4); ABSOLUTE NEUT (AUTO) 5.7 10^3/uL (1.7-8.2); BASOPHILS % (AUTO) 0.3 % (0-2); EOSINOPHILS % (AUTO) 0.6 % (0-6); LYMPHOCYTES % (AUTO) 14.9 % (13-45); MEAN CORPUSCULAR HEMOGLOBIN 32.3 pg (27.0-33.4); MEAN CORPUSCULAR HGB CONC 34.2 g/dL (32.0-36.0); MEAN CORPUSCULAR VOLUME 94 fl (80-97); MONOCYTES % (AUTO) 4.3 % (3-13); RED BLOOD COUNT 4.03 10^6/uL (4.35-5.55); RED CELL DISTRIBUTION WIDTH 15.2 % (11.5-14.0); SEGMENTED NEUTROPHILS % (AUTO) 79.9 % (42-78); TOTAL CELLS COUNTED % (AUTO) 100 %; WHITE BLOOD COUNT 7.1 10^3/uL (4.0-10.5)
[2018-07-05 09:53] LABS: PLATELET COUNT 90 10^3/uL (150-450)
[2018-07-05] MEDS: PREDNISOLONE SOD PHOS 15 MG/5 ML ORAL SYRING PO SCH (10:35)
[2018-07-05] MEDS ORDERED: ALBUTEROL SULFATE HFA (90 MCG/PUFF) 200 PUFF/8.5 GM MDI IH PRN (12:57)
[2018-07-05] MEDS ORDERED: DICYCLOMINE HCL 20 MG TABLET PO PRN (12:57)
[2018-07-05] MEDS ORDERED: CLONIDINE HCL 0.1 MG TABLET PO SCH (14:00)
[2018-07-05] MEDS: DULOXETINE HCL 30 MG CAPSULE.DR PO SCH (15:23)
[2018-07-05] MEDS: AMLODIPINE BESYLATE 5 MG TABLET PO SCH (15:23)
[2018-07-05] MEDS: CLONIDINE HCL 0.2 MG TABLET PO SCH ×2 (15:23→21:11)
[2018-07-05] MEDS: FLUTICASONE/VILANTEROL 200-25 MCG/DOSE IH SCH (15:24)
[2018-07-05] MEDS: FLUTICASONE NASAL SPRAY 50 MCG/SPRY 120 SPRAY/16 GM NASL SCH (15:24)
[2018-07-05] MEDS: SUCRALFATE 1 GM TABLET PO SCH ×2 (15:25→21:11)
--- NOTE | 2018-07-05 16:56 | PDOC PROGRESS REPORT ---
Subjective Progress Note for:: 07/05/18 Subjective:: Patient was seen by the bedside, he was admitted for the management of acute alcoholic hepatitis, acute alcohol pancreatitis, polysubstance abuse, presently on prednisolone for the acute alcohol hepatitis . I prescribed tramadol for pain control on as-needed basis,he is not a candidate for oxycodone or hydrocodone or any scheduled 2 controlled substance Reason For Visit: ALCOHOL HEPATITIS, PANCREATITIS, POLYSUBSTANCE Physical Exam Vital Signs: Temp Pulse Resp BP Pulse Ox 98.1 F 89 16 146/93 H 97 07/05/18 15:56 07/05/18 15:56 07/05/18 15:56 07/05/18 15:56 07/05/18 15:56 Intake & Output 07/04/18 07/05/18 07/06/18 06:59 06:59 06:59 Intake Total 1999 2117 2417 Balance 1999 2117 2417 Weight 129.7 kg 120.1 kg 120.1 kg General appearance: PRESENT: no acute distress Eye exam: PRESENT: PERRLA Respiratory exam: PRESENT: clear to auscultation brandon Cardiovascular exam: PRESENT: +S1, +S2 GI/Abdominal exam: PRESENT: soft Neurological exam: PRESENT: alert Results Laboratory Results: 07/05/18 08:59 07/05/18 06:27 07/05/18 07/05/18 07/05/18 06:27 06:27 08:59 WBC Cancelled 7.1 RBC Cancelled 4.03 L Hgb Cancelled 13.0 L D Hct Cancelled 38.0 MCV Cancelled 94 MCH Cancelled 32.3 MCHC Cancelled 34.2 RDW Cancelled 15.2 H Plt Count Cancelled 90 L Seg Neutrophils % Cancelled 79.9 H Lymphocytes % Cancelled 14.9 Monocytes % Cancelled 4.3 Eosinophils % Cancelled 0.6 Basophils % Cancelled 0.3 Absolute Neutrophils Cancelled 5.7 Absolute Lymphocytes Cancelled 1.1 Absolute Monocytes Cancelled 0.3 Absolute Eosinophils Cancelled 0.0 Absolute Basophils Cancelled 0.0 Sodium 136.6 L Potassium 3.8 Chloride 108 H Carbon Dioxide 23 Anion Gap 6 BUN 5 L Creatinine 0.65 Est GFR ( Amer) > 60 Est GFR (Non-Af Amer) > 60 Glucose 110 Calcium 8.1 L Total Bilirubin 1.2 AST 138 H ALT 148 H Alkaline Phosphatase 154 H Total Protein 5.4 L Albumin 2.5 L Triglycerides 115 Cholesterol 122.88 LDL Cholesterol Direct 64 VLDL Cholesterol 23.0 HDL Cholesterol 41 Amylase 33 Lipase 126.5 07/03/18 07/03/18 07/03/18 17:53 17:53 19:52 Creatine Kinase Cancelled 238 H CK-MB (CK-2) 3.65 Troponin I 0.026 07/04/18 07/04/18 07/04/18 01:37 03:23 03:23 Creatine Kinase 214 H CK-MB (CK-2) 2.61 Troponin I 0.025 07/04/18 07/04/18 07/04/18 09:50 09:50 15:45 Creatine Kinase 199 H 202 H CK-MB (CK-2) 2.62 Troponin I 07/04/18 15:45 Creatine Kinase CK-MB (CK-2) 2.79 Troponin I Impressions: Chest X-Ray 07/03/18 17:03 IMPRESSION: NO ACUTE RADIOGRAPHIC FINDING IN THE CHEST. Abdomen/Pelvis CT 07/03/18 22:23 IMPRESSION: Fatty infiltrative change to the liver. Pancreatitis with what is likely mild adjacent/reactive duodenitis. Small bilateral renal cysts. Stable left adrenal nodule. TECHNICAL DOCUMENTATION: Quality ID # 436: Final reports with documentation of one or more dose reduction techniques (e.g., Automated exposure control, adjustment of the mA and/or kV according to patient size, use of iterative reconstruction technique) copyright 2011 [employer]- All Rights Reserved Assessment & Plan - Diagnosis (1) Acute alcoholic hepatitis Is this a current diagnosis for this admission?: Yes Plan: Continue prednisolone (2) Acute alcoholic pancreatitis Qualifiers: Acute pancreatitis complication: no infection or necrosis Qualified Code(s): K85.20 - Alcohol induced acute pancreatitis without necrosis or infection Is this a current diagnosis for this admission?: Yes (3) Polysubstance abuse Is this a current diagnosis for this admission?: Yes (4) Hypertensive urgency Is this a current diagnosis for this admission?: Yes Plan: Increase clonidine to 0.2 mg p.o. Q8 Hour
[2018-07-05] MEDS: NICOTINE 21 MG/24 HR PATCH.TD24 TD SCH (17:17)
[2018-07-05] MEDS: ROPINIROLE HCL 1 MG TABLET PO SCH (21:11)
[2018-07-05] MEDS ORDERED: (PENDING PHARMACY ID) (Ropinirole Hcl [Requip] 0.5 MG) PO SCH (22:00)
[2018-07-06] MEDS: POTASSI CL 20 MEQ/NS 1L 1,000 ML IV PRN ×3 (00:24→22:03)
[2018-07-06] MEDS: CLONIDINE HCL 0.2 MG TABLET PO SCH ×3 (05:04→21:06)
[2018-07-06 05:58] LABS: ABSOLUTE LYMPHOCYTES (AUTO) 1.2 10^3/uL (0.5-4.7); ABSOLUTE MONOCYTES (AUTO) 0.3 10^3/uL (0.1-1.4); BASOPHILS % (AUTO) 0.1 % (0-2); EOSINOPHILS % (AUTO) 0.3 % (0-6); HEMATOCRIT 37.8 % (37.9-51.0); LYMPHOCYTES % (AUTO) 14.1 % (13-45); MEAN CORPUSCULAR HEMOGLOBIN 32.4 pg (27.0-33.4); MEAN CORPUSCULAR HGB CONC 34.5 g/dL (32.0-36.0); MEAN CORPUSCULAR VOLUME 94 fl (80-97); MONOCYTES % (AUTO) 3.8 % (3-13); PLATELET COUNT 106 10^3/uL (150-450); RED BLOOD COUNT 4.02 10^6/uL (4.35-5.55); RED CELL DISTRIBUTION WIDTH 15.1 % (11.5-14.0); SEGMENTED NEUTROPHILS % (AUTO) 81.7 % (42-78); TOTAL CELLS COUNTED % (AUTO) 100 %; WHITE BLOOD COUNT 8.6 10^3/uL (4.0-10.5)
[2018-07-06 06:10] LABS: ALANINE AMINOTRANSFERASE 136 U/L (21-72); ALBUMIN 2.8 g/dL (3.5-5.0); ALKALINE PHOSPHATASE 142 U/L (38-126); ANION GAP 6 (5-19); ASPARTATE AMINO TRANSFERASE 106 U/L (17-59); BILIRUBIN,DIRECT 0.4 mg/dL (0.0-0.4); BLOOD UREA NITROGEN 8 mg/dL (7-20); CALCIUM 8.7 mg/dL (8.4-10.2); CARBON DIOXIDE 24 mmol/L (22-30); CHLORIDE 107 mmol/L (98-107); GLUCOSE 112 mg/dL (75-110); SODIUM 137.2 mmol/L (137-145); TOTAL PROTEIN 5.8 g/dL (6.3-8.2)
[2018-07-06] MEDS: SUCRALFATE 1 GM TABLET PO SCH ×4 (08:27→21:06)
[2018-07-06] MEDS: MAGNESIUM CITRATE 296 ML BOTTLE PO SCH (09:54)
[2018-07-06] MEDS: DULOXETINE HCL 30 MG CAPSULE.DR PO SCH (09:54)
[2018-07-06] MEDS: PANTOPRAZOLE SODIUM 40 MG TABLET.DR PO SCH (09:54)
[2018-07-06] MEDS: NICOTINE 21 MG/24 HR PATCH.TD24 TD SCH (09:54)
[2018-07-06] MEDS: AMLODIPINE BESYLATE 5 MG TABLET PO SCH (09:54)
[2018-07-06] MEDS: PREDNISOLONE SOD PHOS 15 MG/5 ML ORAL SYRING PO SCH (09:55)
[2018-07-06] MEDS: THIAMINE HCL 100 MG TABLET PO SCH (09:57)
[2018-07-06] MEDS: FLUTICASONE NASAL SPRAY 50 MCG/SPRY 120 SPRAY/16 GM NASL SCH (09:57)
[2018-07-06] MEDS: FLUTICASONE/VILANTEROL 200-25 MCG/DOSE IH SCH (09:57)
--- NOTE | 2018-07-06 18:31 | PDOC PROGRESS REPORT ---
Subjective Progress Note for:: 07/06/18 Subjective:: Patient was seen by the bedside, Reason For Visit: ALCOHOL HEPATITIS, PANCREATITIS, POLYSUBSTANCE Physical Exam Vital Signs: Temp Pulse Resp BP Pulse Ox 98.5 F 82 16 130/82 H 97 07/06/18 16:27 07/06/18 16:27 07/06/18 16:27 07/06/18 16:27 07/06/18 16:27 Intake & Output 07/05/18 07/06/18 07/07/18 06:59 06:59 06:59 Intake Total 211779 2067 Balance 2117 5378 2067 Weight 120.1 kg 118.9 kg General appearance: PRESENT: no acute distress Eye exam: PRESENT: PERRLA Respiratory exam: PRESENT: clear to auscultation brandon Cardiovascular exam: PRESENT: +S1, +S2 GI/Abdominal exam: PRESENT: soft Neurological exam: PRESENT: alert Results Laboratory Results: 07/06/18 05:45 07/06/18 05:45 07/06/18 07/06/18 05:45 05:45 WBC 8.6 RBC 4.02 L Hgb 13.0 L Hct 37.8 L MCV 94 MCH 32.4 MCHC 34.5 RDW 15.1 H Plt Count 106 L Seg Neutrophils % 81.7 H Lymphocytes % 14.1 Monocytes % 3.8 Eosinophils % 0.3 Basophils % 0.1 Absolute Neutrophils 7.0 Absolute Lymphocytes 1.2 Absolute Monocytes 0.3 Absolute Eosinophils 0.0 Absolute Basophils 0.0 Sodium 137.2 Potassium 4.0 Chloride 107 Carbon Dioxide 24 Anion Gap 6 BUN 8 Creatinine 0.71 Est GFR ( Amer) > 60 Est GFR (Non-Af Amer) > 60 Glucose 112 H Calcium 8.7 Total Bilirubin 1.0 AST 106 H ALT 136 H Alkaline Phosphatase 142 H Total Protein 5.8 L Albumin 2.8 L 07/03/18 07/03/18 07/03/18 17:53 17:53 19:52 Creatine Kinase Cancelled 238 H CK-MB (CK-2) 3.65 Troponin I 0.026 07/04/18 07/04/18 07/04/18 01:37 03:23 03:23 Creatine Kinase 214 H CK-MB (CK-2) 2.61 Troponin I 0.025 07/04/18 07/04/18 07/04/18 09:50 09:50 15:45 Creatine Kinase 199 H 202 H CK-MB (CK-2) 2.62 Troponin I 07/04/18 15:45 Creatine Kinase CK-MB (CK-2) 2.79 Troponin I Impressions: Chest X-Ray 07/03/18 17:03 IMPRESSION: NO ACUTE RADIOGRAPHIC FINDING IN THE CHEST. Abdomen/Pelvis CT 07/03/18 22:23 IMPRESSION: Fatty infiltrative change to the liver. Pancreatitis with what is likely mild adjacent/reactive duodenitis. Small bilateral renal cysts. Stable left adrenal nodule. TECHNICAL DOCUMENTATION: Quality ID # 436: Final reports with documentation of one or more dose reduction techniques (e.g., Automated exposure control, adjustment of the mA and/or kV according to patient size, use of iterative reconstruction technique) copyright 2011 [employer]- All Rights Reserved Assessment & Plan - Diagnosis (1) Acute alcoholic hepatitis Is this a current diagnosis for this admission?: Yes Plan: Continue prednisolone (2) Acute alcoholic pancreatitis Qualifiers: Acute pancreatitis complication: no infection or necrosis Qualified Code(s): K85.20 - Alcohol induced acute pancreatitis without necrosis or infection Is this a current diagnosis for this admission?: Yes (3) Polysubstance abuse Is this a current diagnosis for this admission?: Yes (4) Hypertensive urgency Is this a current diagnosis for this admission?: Yes Plan: Blood pressure better controlled on present regimen
[2018-07-06] MEDS: ROPINIROLE HCL 1 MG TABLET PO SCH (21:07)
[2018-07-07] MEDS: CLONIDINE HCL 0.2 MG TABLET PO SCH ×2 (05:01→14:55)
[2018-07-07 06:49] LABS: HEMATOCRIT 39.5 % (37.9-51.0); HEMOGLOBIN 13.3 g/dL (13.5-17.0); MEAN CORPUSCULAR HEMOGLOBIN 31.9 pg (27.0-33.4); MEAN CORPUSCULAR HGB CONC 33.8 g/dL (32.0-36.0); MEAN CORPUSCULAR VOLUME 94 fl (80-97); PLATELET COUNT 133 10^3/uL (150-450); RED BLOOD COUNT 4.19 10^6/uL (4.35-5.55); RED CELL DISTRIBUTION WIDTH 14.8 % (11.5-14.0)
[2018-07-07 07:23] LABS: ALANINE AMINOTRANSFERASE 147 U/L (21-72); ALKALINE PHOSPHATASE 130 U/L (38-126); ANION GAP 8 (5-19); ASPARTATE AMINO TRANSFERASE 139 U/L (17-59); BILIRUBIN,DIRECT 0.3 mg/dL (0.0-0.4); BILIRUBIN,TOTAL 0.6 mg/dL (0.2-1.3); BLOOD UREA NITROGEN 9 mg/dL (7-20); CALCIUM 9.1 mg/dL (8.4-10.2); CARBON DIOXIDE 24 mmol/L (22-30); CHLORIDE 106 mmol/L (98-107); GLUCOSE 121 mg/dL (75-110); POTASSIUM 3.8 mmol/L (3.6-5.0); SODIUM 137.8 mmol/L (137-145); TOTAL PROTEIN 5.9 g/dL (6.3-8.2)
[2018-07-07 07:51] LABS: ABSOLUTE LYMPHOCYTES# (MANUAL) 2.5 10^3/uL (0.5-4.7); ABSOLUTE MONOCYTES # (MANUAL) 0.3 10^3/uL (0.1-1.4); ABSOLUTE NEUTROPHILS# (MANUAL) 6.2 10^3/uL (1.7-8.2); BAND NEUTROPHILS % (MANUAL) 1 % (3-5); BASOPHILS % (MANUAL) 0 % (0-2); EOSINOPHILS % (MANUAL) 0 % (0-6); LYMPHOCYTES % (MANUAL) 28 % (13-45); METAMYELOCYTES % (MANUAL) 1 % (0); MONOCYTES % (MANUAL) 3 % (3-13); SEGMENTED NEUTROPHILS % (MAN) 67 % (42-78); TOTAL CELLS COUNTED 100
[2018-07-07 07:53] LABS: ANISOCYTOSIS SLIGHT; POLYCHROMASIA 1+; TEAR DROP CELLS 1+
[2018-07-07 07:54] LABS: PLATELET COMMENT DECREASED
[2018-07-07] MEDS: TRAMADOL HCL 50 MG TABLET PO PRN (07:56)
[2018-07-07] MEDS: SUCRALFATE 1 GM TABLET PO SCH ×3 (07:56→17:34)
[2018-07-07] MEDS: POTASSI CL 20 MEQ/NS 1L 1,000 ML IV PRN (08:00)
[2018-07-07] MEDS: PANTOPRAZOLE SODIUM 40 MG TABLET.DR PO SCH (11:42)
[2018-07-07] MEDS: DULOXETINE HCL 30 MG CAPSULE.DR PO SCH (11:42)
[2018-07-07] MEDS: AMLODIPINE BESYLATE 5 MG TABLET PO SCH (11:42)
[2018-07-07] MEDS: MAGNESIUM CITRATE 296 ML BOTTLE PO SCH (11:43)
[2018-07-07] MEDS: NICOTINE 21 MG/24 HR PATCH.TD24 TD SCH (11:43)
[2018-07-07] MEDS: FLUTICASONE/VILANTEROL 200-25 MCG/DOSE IH SCH (11:44)
[2018-07-07] MEDS: PREDNISOLONE SOD PHOS 15 MG/5 ML ORAL SYRING PO SCH (11:45)
[2018-07-07] MEDS: FLUTICASONE NASAL SPRAY 50 MCG/SPRY 120 SPRAY/16 GM NASL SCH (11:45)
[2018-07-07] MEDS: THIAMINE HCL 100 MG TABLET PO SCH (11:51)
[2018-07-07 17:56] VITALS: BP 145/86
--- NOTE | 2018-07-07 20:08 | PDOC DISCHARGE SUMMARY ---
General - Admit/Disc Date/PCP Admission Date/Primary Care Provider: 07/04/18 03:55 NAYE NY MD Discharge Date: 07/07/18 - Discharge Diagnosis (1) Acute alcoholic hepatitis Is this a current diagnosis for this admission?: Yes (2) Acute alcoholic pancreatitis Is this a current diagnosis for this admission?: Yes (3) Polysubstance abuse Is this a current diagnosis for this admission?: Yes (4) Hypertensive urgency Is this a current diagnosis for this admission?: Yes - Additional Information Prescriptions: Ibuprofen [Motrin 800 mg Tablet] 800 mg PO Q8HP PRN #30 tablet PRN Reason: FOR MILD PAIN Home Medications: Dicyclomine HCl [Bentyl 20 mg Tablet] 20 mg PO Q6HP PRN 07/04/18 Omeprazole 20 mg PO DAILY 07/04/18 Sucralfate [Carafate 1 gm Tablet] 1 gm PO ACHS 07/04/18 Albuterol Sulfate [Proair HFA Inhalation Aerosol 8.5 gm MDI] 2 puff IH Q6HP PRN 07/05/18 Amlodipine Besylate [Norvasc 5 mg Tablet] 5 mg PO DAILY 07/05/18 Budesonide/Formoterol Fumarate [Symbicort HFA 160-4.5 mcg Inhaler 6 gm] 2 puff IH Q12 07/05/18 Chlorpheniramine Maleate [Chlor-Trimeton 4 mg Tablet] 1 tab PO Q6HP PRN 07/05/18 Cyclobenzaprine HCl [Flexeril 5 mg Tablet] 5 mg PO TIDP PRN 07/05/18 Duloxetine HCl [Cymbalta] 60 mg PO DAILY 07/05/18 Fluticasone Propionate [Flonase Nasal [place] 50 Mcg/[place] 16 gm] 1 spray NASL DAILY 07/05/18 Hydralazine HCl [Apresoline 50 mg Tablet] 50 mg PO Q8 07/05/18 Pregabalin [Lyrica] 150 mg PO BID 07/05/18 Ropinirole HCl [Requip] 0.5 mg PO QHS 07/05/18 Ibuprofen [Motrin 800 mg Tablet] 800 mg PO Q8HP PRN #30 tablet 07/07/18 Thiamine HCl [Thiamine 100 mg Tablet] 100 mg PO DAILY #90 tablet 07/07/18 History of Present Illness History of Present Illness: MONTY TEE is a 48 year old male,He came to the emergency room last night for evaluation of abdominal pain, he admitted to drinking alcohol heavily in the last 2 weeks the emergency room he was evaluated, CT scan of the abdomen and pelvis was done it demonstrated acute pancreatitis and fatty liver, the blood work that was done showed extremely elevated liver enzymes he also has elevated alcohol level ,the urine drug screen was positive for cocaine and opiate pain Hospital Course Hospital Course: Patient was admitted when he presented with acute alcohol hepatitis, acute alcohol pancreatitis, cocaine abuse, alcohol abuse. He was managed conservatively with oral prednisolone specifically for the alcoholic hepatitis. Patient was requesting opioid analgesia but I explained to him that he cannot use opioid analgesia with a background of cocaine and alcoholism. He also was treated with IV fluid, on admission the liver enzymes were severely elevated with treatment there was improvement. Patient is stable today, he wants to go home, he was taken off prednisolone tablet today typically the recommendation for the use of Prednisolone for patient with acute alcohol hepatitis is 40 mg for 30 days and then subsequent taper dose but because patient is unreliable, he probably would not follow-up as requested the prednisolone was stopped today. Physical Exam Vital Signs: Temp Pulse Resp BP Pulse Ox 98.9 F 90 18 145/86 H 100 07/07/18 14:52 07/07/18 14:52 07/07/18 14:52 07/07/18 17:00 07/07/18 14:52 Intake & Output 07/06/18 07/07/18 07/08/18 06:59 06:59 06:59 Intake Total 5399 3368 2333 Balance 5379 3368 2333 Weight 118.9 kg 115.6 kg General appearance: PRESENT: no acute distress Head exam: PRESENT: atraumatic, normocephalic Eye exam: PRESENT: PERRLA Ear exam: PRESENT: normal external ear exam Mouth exam: PRESENT: moist, tongue midline Neck exam: PRESENT: full ROM Respiratory exam: PRESENT: clear to auscultation brandon Cardiovascular exam: PRESENT: RRR, +S1, +S2 Vascular exam: PRESENT: normal capillary refill GI/Abdominal exam: PRESENT: normal bowel sounds, soft Rectal exam: PRESENT: deferred Neurological exam: PRESENT: alert, CN II-XII grossly intact Skin exam: PRESENT: dry, intact, warm Results Laboratory Results: 07/07/18 05:45 07/07/18 05:45 07/07/18 07/07/18 05:45 05:45 WBC 9.0 RBC 4.19 L Hgb 13.3 L Hct 39.5 MCV 94 MCH 31.9 MCHC 33.8 RDW 14.8 H Plt Count 133 L Seg Neutrophils % Not Reportable Lymphocytes % Not Reportable Monocytes % Not Reportable Eosinophils % Not Reportable Basophils % Not Reportable Absolute Neutrophils Not Reportable Absolute Lymphocytes Not Reportable Absolute Monocytes Not Reportable Absolute Eosinophils Not Reportable Absolute Basophils Not Reportable Sodium 137.8 Potassium 3.8 Chloride 106 Carbon Dioxide 24 Anion Gap 8 BUN 9 Creatinine 0.70 Est GFR ( Amer) > 60 Est GFR (Non-Af Amer) > 60 Glucose 121 H Calcium 9.1 Total Bilirubin 0.6 AST 139 H ALT 147 H Alkaline Phosphatase 130 H Total Protein 5.9 L Albumin 3.0 L 07/03/18 07/03/18 07/03/18 17:53 17:53 19:52 Creatine Kinase Cancelled 238 H CK-MB (CK-2) 3.65 Troponin I 0.026 07/04/18 07/04/18 07/04/18 01:37 03:23 03:23 Creatine Kinase 214 H CK-MB (CK-2) 2.61 Troponin I 0.025 07/04/18 07/04/18 07/04/18 09:50 09:50 15:45 Creatine Kinase 199 H 202 H CK-MB (CK-2) 2.62 Troponin I 07/04/18 15:45 Creatine Kinase CK-MB (CK-2) 2.79 Troponin I Impressions: Chest X-Ray 07/03/18 17:03 IMPRESSION: NO ACUTE RADIOGRAPHIC FINDING IN THE CHEST. Abdomen/Pelvis CT 07/03/18 22:23 IMPRESSION: Fatty infiltrative change to the liver. Pancreatitis with what is likely mild adjacent/reactive duodenitis. Small bilateral renal cysts. Stable left adrenal nodule. TECHNICAL DOCUMENTATION: Quality ID # 436: Final reports with documentation of one or more dose reduction techniques (e.g., Automated exposure control, adjustment of the mA and/or kV according to patient size, use of iterative reconstruction technique) copyright 2011 [employer]- All Rights Reserved Qualifiers - * PATIENT BEING DISCHARGED WITH ANY OF THE FOLLOWING DIAGNOSIS: No
== END 2018-07-07 18:54 | disposition home or self-care (01) | DRG 432 ==
LOC: ER 16:24 → EH 07-04 03:55 → 3W 07-04 19:50
PROVIDERS: ADMIT Internal Medicine; ATTEND Internal Medicine
DX: K70.10 Alcoholic hepatitis without ascites (principal); K85.20 Alcohol induced acute pancreatitis without necrosis or infection; I16.0 Hypertensive urgency; F14.10 Cocaine abuse, uncomplicated; F10.20 Alcohol dependence, uncomplicated; E78.5 Hyperlipidemia, unspecified; I10 Essential (primary) hypertension; F25.0 Schizoaffective disorder, bipolar type; F12.10 Cannabis abuse, uncomplicated; F17.210 Nicotine dependence, cigarettes, uncomplicated; Z60.2 Problems related to living alone; Z79.899 Other long term (current) drug therapy; Z82.61 Family history of arthritis; Z82.49 Family history of ischemic heart disease and other diseases of the circulatory system; Z82.3 Family history of stroke; Z83.3 Family history of diabetes mellitus; Z88.8 Allergy status to other drugs, medicaments and biological substances; Z91.013 Allergy to seafood
CPT/HCPCS: 36415; 71046; 74177; 80048; 80053; 80061; 80076; 80307; 81001; 82140; 82150; 82550; 82553; 83036; 83690; 83735; 84100; 84439; 84443; 84484; 85025; 85610; 85730; 93005; 93010; 96361; 96374; 96375; 99285; J2270; J2405; J3360; J3480; J3490; J7030; J7510

== ENCOUNTER 2019-06-03 12:05 | Emergency (ER) | payer MEDICAID ==
--- NOTE | 2019-06-03 12:44 | RADIOLOGY REPORT (SQ) ---
EXAM DESCRIPTION: CHEST SINGLE VIEW COMPLETED DATE/TIME: 06/03/2019 12:32 pm REASON FOR STUDY: chest pain COMPARISON: 07/03/2018. EXAM PARAMETERS: NUMBER OF VIEWS: One view. TECHNIQUE: Single frontal radiographic view of the chest acquired. RADIATION DOSE: NA LIMITATIONS: None. FINDINGS: LUNGS AND PLEURA: No opacities, masses or pneumothorax. No pleural effusion. MEDIASTINUM AND HILAR STRUCTURES: No masses. Contour normal. HEART AND VASCULAR STRUCTURES: Heart normal in size. Normal vasculature. BONES: No acute findings. HARDWARE: None in the chest. OTHER: No other significant finding. IMPRESSION: NO ACUTE RADIOGRAPHIC FINDING IN THE CHEST. TECHNICAL DOCUMENTATION: JOB ID: [id number] 2010 [employer]- All Rights Reserved Reading location - IP/workstation name: [email or web address]
[2019-06-03 12:55] LABS: APPEARANCE,URINE CLEAR; BILIRUBIN,URINE NEGATIVE (NEGATIVE); COLOR,URINE YELLOW; GLUCOSE, URINE NEGATIVE (NEGATIVE); KETONES,URINE NEGATIVE (NEGATIVE); LEUKOCYTE ESTERASE,URINE NEGATIVE (NEGATIVE); NITRITE,URINE NEGATIVE (NEGATIVE); PROTEIN,URINE NEGATIVE (NEGATIVE); URINE SPECIFIC GRAVITY 1.013; UROBILINOGEN,URINE NEGATIVE mg/dL (<2.0)
[2019-06-03] MEDS ORDERED: THIAMINE HCL 100 MG, FOLIC ACID 1 MG in NORMAL SALINE 250 ML IV ONE (13:42)
[2019-06-03] MEDS ORDERED: NORMAL SALINE 1000 ML 1,000 ML IV ONE (13:42)
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
--- NOTE | 2019-06-03 14:26 | RADIOLOGY REPORT (SQ) ---
EXAM DESCRIPTION: HAND RIGHT 3 VIEWS COMPLETED DATE/TIME: 06/03/2019 2:16 pm REASON FOR STUDY: trouble with extension rt thumb COMPARISON: None. NUMBER OF VIEWS: Three views right hand. LIMITATIONS: None. FINDINGS: Normal bone density. No fracture or worrisome bone lesion. Joint space narrowing with sc lerosis and mild osteophytes at the thumb MCP joint. Other joint spaces are fairly maintained. No e rosions detected. Normal carpal alignment. OTHER: No other significant finding. IMPRESSION: Arthropathy at the thumb MCP joint. No fracture or aggressive erosions. TECHNICAL DOCUMENTATION: JOB ID: [id number] Reading location - IP/workstation name: [email or web address]
[2019-06-03 14:44] LABS: A TYPE INFLUENZA AG NEGATIVE (NEGATIVE); B INFLUENZA AG NEGATIVE (NEGATIVE)
[2019-06-03 14:57] LABS: URINE AMPHETAMINES SCREEN NEGATIVE; URINE BARBITURATES SCREEN NEGATIVE; URINE BENZODIAZEPINES SCREEN NEGATIVE; URINE MARIJUANA (THC) SCREEN NEGATIVE; URINE METHADONE SCREEN NEGATIVE; URINE PHENCYCLIDINE SCREEN NEGATIVE
[2019-06-03 14:58] LABS: URINE COCAINE SCREEN UNCONFIRMED POSITIVE
[2019-06-03 15:08] LABS: ABSOLUTE BASOPHILS # (AUTO) 0.1 10^3/uL (0.0-0.2); ABSOLUTE EOSINOPHILS # (AUTO) 0.1 10^3/uL (0.0-0.6); ABSOLUTE LYMPHOCYTES (AUTO) 1.8 10^3/uL (0.5-4.7); ABSOLUTE MONOCYTES (AUTO) 0.5 10^3/uL (0.1-1.4); BASOPHILS % (AUTO) 0.8 % (0-2); HEMATOCRIT 44.7 % (37.9-51.0); LYMPHOCYTES % (AUTO) 27.9 % (13-45); MEAN CORPUSCULAR HGB CONC 33.4 g/dL (32.0-36.0); MEAN CORPUSCULAR VOLUME 96 fl (80-97); MONOCYTES % (AUTO) 8.4 % (3-13); PLATELET COUNT 175 10^3/uL (150-450); RED BLOOD COUNT 4.68 10^6/uL (4.35-5.55); RED CELL DISTRIBUTION WIDTH 14.6 % (11.5-14.0); SEGMENTED NEUTROPHILS % (AUTO) 61.9 % (42-78); TOTAL CELLS COUNTED % (AUTO) 100 %; WHITE BLOOD COUNT 6.5 10^3/uL (4.0-10.5)
[2019-06-03] MEDS ORDERED: LORAZEPAM INJ 2 MG/1 ML VIAL IM ONE (15:11)
[2019-06-03 15:25] LABS: ALBUMIN 3.4 g/dL (3.5-5.0); ALKALINE PHOSPHATASE 106 U/L (38-126); ANION GAP 6 (5-19); ASPARTATE AMINO TRANSFERASE 101 U/L (17-59); BILIRUBIN,DIRECT 0.1 mg/dL (0.0-0.4); BILIRUBIN,TOTAL 0.6 mg/dL (0.2-1.3); BLOOD UREA NITROGEN 21 mg/dL (7-20); CALCIUM 8.7 mg/dL (8.4-10.2); CARBON DIOXIDE 28 mmol/L (22-30); CHLORIDE 107 mmol/L (98-107); GLUCOSE 85 mg/dL (75-110); POTASSIUM 4.1 mmol/L (3.6-5.0); TOTAL PROTEIN 6.6 g/dL (6.3-8.2)
[2019-06-03 16:04] LABS: CHLAM PCR NOT DETECTED (NOT DETECT)
[2019-06-03] MEDS ORDERED: LISINOPRIL 10 MG TABLET PO ONE (17:01)
--- NOTE | 2019-06-03 17:59 | EKG REPORT ---
SEVERITY:- ABNORMAL ECG - SINUS RHYTHM NONSPECIFIC INTRAVENTRICULAR CONDUCTION DELAY : Confirmed by: Jorge Chapman MD 03-Jun-2019 17:59:04
[2019-06-03 18:02] VITALS: BP 120/59
== END 2019-06-03 18:57 | disposition home or self-care (01) ==
LOC: ER 12:05
DX: J06.9 Acute upper respiratory infection, unspecified (principal); R07.89 Other chest pain; I10 Essential (primary) hypertension; F19.10 Other psychoactive substance abuse, uncomplicated; F10.10 Alcohol abuse, uncomplicated; R09.81 Nasal congestion; R09.89 Other specified symptoms and signs involving the circulatory and respiratory systems; M79.10 Myalgia, unspecified site; Z88.8 Allergy status to other drugs, medicaments and biological substances; J45.909 Unspecified asthma, uncomplicated
CPT/HCPCS: 93005; 99284; 96372; 96365; 36415; 85025; 80053; 81001; 84484; 80307; 87491; 87591; 87804; 71045; 73130; 93010; J3490; J2060; J3411; J7030; J7050

== ENCOUNTER 2019-07-16 10:33 | Emergency (ER) | payer MEDICAID ==
[2019-07-16] MEDS ORDERED: TETRACAINE HCL 0.5% OPH SOLN 4 ML OU ONE (10:48)
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
[2019-07-16 10:56] VITALS: BP 142/82
== END 2019-07-16 11:12 | disposition home or self-care (01) ==
LOC: ER 10:33
DX: H10.33 Unspecified acute conjunctivitis, bilateral (principal); H57.13 Ocular pain, bilateral; F17.200 Nicotine dependence, unspecified, uncomplicated; E78.00 Pure hypercholesterolemia, unspecified; I10 Essential (primary) hypertension
CPT/HCPCS: 99282; J3490

== ENCOUNTER → 2019-11-02 | Outpatient (CLI) | payer MEDICAID ==
[2019-11-02 12:02] VITALS: BP 147/89
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
== END ==
LOC: RDC 10:57
PROVIDERS: ATTEND Nurse Practitioner Family
DX: Z20.828 Contact with and (suspected) exposure to other viral communicable diseases (principal); I10 Essential (primary) hypertension; R00.0 Tachycardia, unspecified; E78.00 Pure hypercholesterolemia, unspecified; Z91.013 Allergy to seafood; Z88.8 Allergy status to other drugs, medicaments and biological substances; F17.200 Nicotine dependence, unspecified, uncomplicated
CPT/HCPCS: 87635; C9803; 99201; 99211